=== PATIENT | male | born 2000 | race Caucasian/White ===

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

== ENCOUNTER 2025-03-14 11:47 | Emergency (ER) | payer BC, SELFPAY ==
[2025-03-14 12:03] VITALS: BP 118/59; PULSE 67; RESP 18; TEMP 36.6; O2SAT 100
--- NOTE | 2025-03-14 12:21 | W.ED.GENAD ---
Discharge Plan Disposition Patient Disposition: Home Discharge Details Clinical Impression: Fever, Thrombocytopenia, Elevated liver transaminase level Primary Care Provider: Unknown,Unknown ED Provider: Yulissa Urias Home Meds and New Rx's Prescriptions: New doxycycline hyclate 100 mg tablet 100 mg PO BID 10 Days Qty: 20 0RF Rx Instructions: Take 1 tablet by mouth twice daily for 10 days Discharge Instructions Instructions: Lyme Disease Test, Fever, Adult ED Additional Instructions: At this time your labs show low platelets are also known as thrombocytopenia and some elevated liver enzymes this could be concerning for tickborne illness. Please take the antibiotic doxycycline as directed with yogurt or probiotic. Please follow-up closely with your primary care provider within the next week to discuss the results of this test. If the tests are positive for tickborne illness you should be hearing from us however if you do not hear from us within the next week please give us a call. Follow up with primary care provider in 3-5 days. Return to ED sooner if any worsening or concerns. Please take Tylenol or Ibuprofen with food every 4-6 hours as needed for pain and swelling. Referrals: Tamra Castellon APRN [NURSE PRACTITIONER, Family Practice] - 5 days Referral Note: Placed on Doxycycline Clinical Impression: Elevated liver transaminase level; Fever; Thrombocytopenia Discharge Data Discharge Date/Time-TO BE ENTERED AT DEPARTURE: 03/14/25 14:14 HPI General Mode of arrival: ambulatory. Date/Time Provider Initiated Documentation: 03/14/25 12:21. Limitations to Documentation: no limitations. Information obtained by: patient, RN notes reviewed and old records reviewed. HPI Narrative: 24-year-old male presents to the ER for chief complaint of generalized fatigue fever and myalgias. He has been working outside reported some dark urination. He states that he has had a fever since Friday. He also endorses possible lots of tick bites. 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 He did have a negative recent home COVID test. He has been taking Advil for symptoms. Denies any cough sore throat ear pain or URI type symptoms. Denies any abdominal pain or diarrhea. No significant past medical history allergies or daily medication. Related Data Home Medications ?Medication ?Instructions ?Recorded ?Confirmed doxycycline hyclate 100 mg tablet 100 mg PO BID 10 days #20 tabs 03/14/25 Previous Rx's ?Medication ?Instructions ?Recorded doxycycline hyclate 100 mg tablet 100 mg PO BID 10 days #20 tabs 03/14/25 Allergies Allergy/AdvReac Type Severity Reaction Status Date / Time No Known Allergies Allergy Verified 03/14/25 12:08 General Stated Complaint: GenMedical REGULO: 4 Review of Systems All systems reviewed & are unremarkable except as noted in HPI and below Constitutional Constitutional: Reports as per HPI, Reports body ache(s), Reports fatigue and Reports fever(s) Gastrointestinal Gastrointestinal: Denies abdominal pain, Reports nausea and Denies vomiting Integumentary/Breasts Skin/Breast: Denies rash Endocrine Endocrine: Reports fatigue Exam Narrative Exam Narrative: Constitutional: Alert and oriented x3. Appears stated age. Normal body habitus. Head: Normocephalic, no trauma. Eyes: Pupils PERRL, Red reflex noted, EOM's intact. Eyelids symmetrical without lesions, discharge, or swelling. ENT: Bilateral TM's WNL, External ear normal to inspection, no mastoid TTP, swelling, or erythema, Nasal turbinates WNL, no nasal discharge. Normal dentition, Posterior pharynx WNL, no exudate. Chest: RRR, Normal S1, S2, distal pulses intact. Resp: Lungs clear to auscultation bilaterally, no wheezes, rales, or rhonchi. Abdomen: Soft, non-distended, Normoactive bowel sounds all 4 quads. Musculoskeletal: Normal gait, Moves all 4 extremities without difficulty. Skin: No suspicious rashes or lesions. Capillary refill less than 2 sec. Neurologic: Cranial nerves II-XII intact. Alert and oriented x 3. Motor: No deficits noted. Sensory: Intact bilaterally all 4 extremities. Hematologic/Lymphatic: No ecchymosis, no lymphadenopathy. Course Vital Signs Vital signs: Vital Signs Temperature 36.6 C 03/14/25 12:03 Pulse 67 03/14/25 12:03 Respiratory Rate 18 03/14/25 12:03 Blood Pressure 118/59 L 03/14/25 12:03 Pulse Oximetry 100 03/14/25 12:03 Temperature 36.6 C 03/14/25 12:03 Temperature Source Oral 03/14/25 12:03 Pulse 67 03/14/25 12:03 Respiratory Rate 18 03/14/25 12:03 Blood Pressure 118/59 L 03/14/25 12:03 Blood Pressure Position Sitting 03/14/25 12:03 Pulse Oximetry 100 03/14/25 12:03 Oxygen Delivery Method Room Air 03/14/25 12:03 Oxygen Flow Rate 0 03/14/25 12:03 Pain Level 4 03/14/25 12:03 Medical Decision Making 24-year-old male presents to the ER for chief complaint of generalized fatigue fever and myalgias. He has been working outside reported some dark urination. He states that he has had a fever since Friday. He also endorses possible lots of tick bites. 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 He did have a negative recent home COVID test. He has been taking Advil for symptoms. Denies any cough sore throat ear pain or URI type symptoms. Denies any abdominal pain or diarrhea. No significant past medical history allergies or daily medication. CBC, CMP ordered and taken Lyme panel which is a send out. Will screen for babesiosis or tick related illnesses and dehydration. Differential diagnosis includes heat exhaustion, viral illness, Lyme or tickborne disease, CBC shows low platelets thrombocytopenia platelets 120, liver enzymes are elevated, AST 84 ALT 145 alk phos 191 tick and Lyme panel is pending at this time. Concern for anaplasmosis due to the aforementioned labs. Will treat with doxycycline twice daily x 10 days pending results of tick and Lyme panel. Patient given discharge instructions strict return instructions and follow-up care. Refer to the on-call T provider or PCP provider. This text was generated using [employer] dictation system, please disregard any oddities of phrase or misspellings. Lab Data Lab results reviewed: Yes I reviewed the patient's lab results. Labs: Laboratory Tests Range/Units 03/14/25 12:39 WBC (4.4-10.8) 10^3/uL 4.78 RBC (4.36-5.78) 10^6/uL 4.91 Hgb (13.5-17.5) g/dL 14.1 Hct (40.0-50.0) % 43.2 MCV (80-95) fL 88 MCH (27.0-33.0) pg 28.7 MCHC (32.0-36.0) % 32.6 RDW (11.8-14.1) % 13.1 Plt Count (130-400) 10^3/uL 120 L MPV (8.0-11.0) fL 10.3 Immature Gran % % 0.0 Neutrophils % % 37.0 Band Neutrophils % % 6 Lymphocytes % % 47.0 Atypical Lymphs % % 7 Monocytes % % 2.0 Eosinophils % % 1.0 Basophils % % 0.0 Nucleated RBC % (0.0-0.3) % 0.0 Absolute Neutrophils (1.2-6.7) 10^3/uL 2.06 Absolute Lymphocytes (1.2-3.4) 10^3/uL 2.58 Absolute Monocytes (0.1-0.8) 10^3/uL 0.10 Absolute Eosinophils (0.0-0.7) 10^3/uL 0.05 Absolute Basophils (0.0-0.2) 10^3/uL 0.00 RBC Morphology Normal Sodium (136-145) mmol/L 139 Potassium (3.5-5.1) mmol/L 4.2 Chloride (98-107) mmol/L 102 Carbon Dioxide (21.0-32.0) mmol/L 29.9 Anion Gap (3-11) mmol/L 7.1 BUN (7-18) mg/dL 10 Creatinine (0.70-1.30) mg/dL 1.2 Est GFR (CKD-EPI 2020) (mL/min/1.73m2) 87.15 Glucose (74-106) mg/dL 96 Calcium (8.5-10.1) mg/dL 8.6 Total Bilirubin (0.2-1.0) mg/dL 0.6 AST (15-37) U/L 84 H ALT (16-63) U/L 145 H Alkaline Phosphatase (46-116) U/L 191 H Total Protein (6.4-8.2) g/dL 7.0 Albumin (3.4-5.0) g/dL 4.0 Lyme Disease Antibody (Negative) Negative PFSH All Active Problems (Updated 03/14/25 @ 14:08 by Yulissa Urias NP) Elevated liver transaminase level (Acute) Thrombocytopenia (Chronic) Fever (Acute) Social History Smoking/Tobacco Use Status: Never Smoking risk assessment performed?: Yes Alcohol Intake: never Drug use: Never Do you feel safe at home: Yes Do you feel safe in your relationship?: Yes
[2025-03-14 12:52] LABS: Abs Immature Grans 0.01 10^3/uL (0.0-0.06); HCT 43.2 % (40.0-50.0); HGB 14.1 g/dL (13.5-17.5); MCH 28.7 pg (27.0-33.0); MCHC 32.6 % (32.0-36.0); MCV 88 fL (80-95); MPV 10.3 fL (8.0-11.0); Platelet Count 120 10^3/uL (130-400); RBC 4.91 10^6/uL (4.36-5.78); RDW 13.1 % (11.8-14.1); RDW-SD 42.4 fL; WBC 4.78 10^3/uL (4.4-10.8)
[2025-03-14 13:00] VITALS: BP 118/59; PULSE 67; RESP 18; TEMP 36.6; O2SAT 100
[2025-03-14 13:32] LABS: ALT 145 U/L (16-63); AST 84 U/L (15-37); Albumin 4.0 g/dL (3.4-5.0); Alkaline Phosphatase 191 U/L (46-116); Anion Gap 7.1 mmol/L (3-11); BUN 10 mg/dL (7-18); Bilirubin, Total 0.6 mg/dL (0.2-1.0); CO2 29.9 mmol/L (21.0-32.0); Calcium 8.6 mg/dL (8.5-10.1); Chloride 102 mmol/L (98-107); Estimated GFR 87.15 (mL/min/1.73m2); Glucose 96 mg/dL (74-106); Potassium 4.2 mmol/L (3.5-5.1); Sodium 139 mmol/L (136-145); Total Protein 7.0 g/dL (6.4-8.2)
[2025-03-14 13:40] LABS: Immature Grans % 0.0 %
[2025-03-14 13:41] LABS: RBC Morphology Normal
[2025-03-14] MEDS: Doxycycline Hyclate 100 MG CAP PO (14:08)
[2025-03-15 11:12] LABS: Lyme Ab w Rflx to Lyme Confirm Negative (Negative)
[2025-03-16 23:18] LABS: B. miyamotoi PCR Negative (Negative); Babesia divergens/MO-1 Negative (Negative); Ehrlichia muris eauclairensis Negative (Negative)
--- NOTE | 2025-03-19 08:44 | NUR.NOTE ---
Nursing Note: this RN accessed PT chart d/t pt calling asking for results
== END 2025-03-14 14:14 | disposition home or self-care (01) ==
PROVIDERS: Emergency Provider Registered Nurse Emergency
DX: R50.9 Fever, unspecified (principal); D69.6 Thrombocytopenia, unspecified; R74.01 Elevation of levels of liver transaminase levels
CPT/HCPCS: 80053; 82962; 87798; 99283; 85025; 86618